=== PATIENT | female | born 1980 | race Caucasian/White ===

== ENCOUNTER 2016-12-17 12:29 | Emergency (ER) | payer OTHER ==
[~2016-12-17] VITALS: Ht 167.6 cm; Wt 68.0 kg
[~2016-12-17 12:29] MED LIST: /CELE20CA OR; /SCOPPA TD; ABIL10TA; ABIL15TA OR; ABIL2TAB; ABIL5TAB; ACET50TA PO; ALBU17IN INH; ALLE25CA; ALLE25CA OR; ARTHROTEC PO; ATIV1TAB2 OR; AUGM500T34 PO; AZIT250T3 PO; CIPR25SS OR; COLA100C3 PO; DIFL50TA OR; FLEXERIL; FLUT11IN INH; GEOD20CA14 OR; IBUP80TA PO; KLON1TAB OR; LEXAPRO PO; MAGN500T2 OR; METO10TA2 OR; NEXI20CA OR; ORTHO TRICYCLINE PO; OXCA15HATB OR; PHEN100T2 OR; PRIL20CA; PRIL40CA; PRIL40CA OR; PROTPAK PO; ROBILIQ PO; RYZOLT; RYZOLT PO; SERT100T; SKEL800T5; SOMA250T OR; SOMA350T OR; TOPI25TA2; TRAM50TA2; VICO5TAB; VITAMIN D50000 UNT; VITAMIN D50000 UNT OR; ZANA4CAP; ZANT150T; [UNRECOGNIZED DRUG - OTHER]
[2016-12-17 12:30] VITALS: BP 135/76
[2016-12-17] MEDS ORDERED: NAPR500T2 PO (12:37)
[2016-12-17] MEDS ORDERED: META800T82 PO (12:37)
[2016-12-17] MEDS ORDERED: ARNU1INH INH (12:37)
[2016-12-17] MEDS ORDERED: NORCOTAB PO (13:42)
[2016-12-17] MEDS ORDERED: NORCO, ANEXSIA 5/325MG TABLET (HYDROcodone/ACETAMINOPHEN) PO ONE (13:45)
== END 2016-12-17 14:22 | disposition home or self-care (01) ==
LOC: M ED 13:53
DX: S39.012A Strain of muscle, fascia and tendon of lower back, initial encounter (principal); M54.16 Radiculopathy, lumbar region; X58.XXXA Exposure to other specified factors, initial encounter; Y92.019 Unspecified place in single-family (private) house as the place of occurrence of the external cause; Y93.89 Activity, other specified; Y99.8 Other external cause status; J45.909 Unspecified asthma, uncomplicated; F31.9 Bipolar disorder, unspecified; Q61.5 Medullary cystic kidney; F17.200 Nicotine dependence, unspecified, uncomplicated; Z79.1 Long term (current) use of non-steroidal anti-inflammatories (NSAID); Z79.51 Long term (current) use of inhaled steroids; Z79.899 Other long term (current) drug therapy

== ENCOUNTER 2016-12-28 17:42 | Emergency (ER) | payer OTHER ==
[~2016-12-28] VITALS: Ht 167.6 cm; Wt 72.6 kg
[~2016-12-28 17:42] MED LIST changes: +ARNU1INH INH; +META800T82 PO; +NAPR500T2 PO; +NORCOTAB PO
[2016-12-28 19:05] VITALS: BP 156/75
== END 2016-12-28 19:06 | disposition home or self-care (01) ==
LOC: M ED 18:57
DX: O9A.211 Injury, poisoning and certain other consequences of external causes complicating pregnancy, first trimester (principal); S39.012A Strain of muscle, fascia and tendon of lower back, initial encounter; X50.0XXA Overexertion from strenuous movement or load, initial encounter; Y92.89 Other specified places as the place of occurrence of the external cause; Y93.89 Activity, other specified; Y99.8 Other external cause status; O26.891 Other specified pregnancy related conditions, first trimester; M54.9 Dorsalgia, unspecified; O10.92 Unspecified pre-existing hypertension complicating childbirth; O99.511 Diseases of the respiratory system complicating pregnancy, first trimester; J45.909 Unspecified asthma, uncomplicated; O99.281 Endocrine, nutritional and metabolic diseases complicating pregnancy, first trimester; Q61.5 Medullary cystic kidney; Z87.891 Personal history of nicotine dependence; Z79.51 Long term (current) use of inhaled steroids; Z3A.08 8 weeks gestation of pregnancy

== ENCOUNTER → 2016-12-30 | Outpatient (REF) | payer OTHER ==
[~2016-12-30] MED LIST changes: +PRED20TA PO
[2016-12-30 13:21] LABS: BASO % 0.4 % (0.0-1.0); EOS # 0.4 K/mm3 (0.0-0.50); EOS % 4.1 % (0.0-3.0); LARGE UNSTAINED CELL # 0.2 K/mm3 (0.0-0.4); LARGE UNSTAINED CELL % 1.7 % (0.0-4.0); LYMPH % 21.1 % (24.0-44.0); MEAN CORPUSCULAR HEMOGLOBIN 31.5 pg (27.0-33.0); MEAN CORPUSCULAR VOLUME 92.8 fl (80.0-96.0); MONO # 0.5 K/mm3 (0.0-0.8); MONO % 5.2 % (0.0-5.0); NEUTROPHILS # 6.3 K/mm3 (1.8-7.7); NEUTROPHILS % 67.4 % (36.0-66.0); PLATELET COUNT, AUTOMATED 299 k/mm3 (150-450); RED CELL DISTRIBUTION WIDTH 12.5 % (11.5-14.5); WHITE BLOOD COUNT 9.3 K/mm3 (4.0-10.0)
[2016-12-30 13:50] LABS: ALBUMIN 3.6 GM/DL (3.2-5.2); ALBUMIN/GLOBULIN RATIO 1.09 (1.00-1.93); ALKALINE PHOSPHATASE 69 U/L (45-117); ALT/SGPT 16 U/L (12-78); ANION GAP 9 MEQ/L (8-16); AST/SGOT 10 U/L (15-37); BILIRUBIN,TOTAL 0.3 MG/DL (0.2-1.0); BLOOD UREA NITROGEN 13 MG/DL (7-18); CALCIUM LEVEL 8.8 MG/DL (8.5-10.1); CARBON DIOXIDE LEVEL 25 MEQ/L (21-32); CHLORIDE LEVEL 104 MEQ/L (98-107); CREATININE FOR GFR 0.57 MG/DL (0.55-1.02); GLOMERULAR FILTRATION RATE > 60.0 (>60); GLUCOSE, FASTING 72 MG/DL (70-105); HCG, SERUM QUANTITATIVE 28443 MIU/ML; POTASSIUM SERUM 4.1 MEQ/L (3.5-5.1); SODIUM LEVEL 138 MEQ/L (136-145); TOTAL PROTEIN 6.9 GM/DL (6.4-8.2)
== END ==
LOC: M LAB REF 12:32
PROVIDERS: ATTEND Nurse Practitioner Family
DX: M51.16 Intervertebral disc disorders with radiculopathy, lumbar region (principal)

== ENCOUNTER 2017-01-09 13:52 | Emergency (ER) | payer OTHER ==
[~2017-01-09] VITALS: Ht 167.6 cm; Wt 72.6 kg
[~2017-01-09 13:52] MED LIST changes: -PRED20TA PO
[2017-01-09] MEDS ORDERED: MAG SULF 1GM/100ML (MAG RUN) 2 GM in APPROPRIATE DILUENT 1 EA IV ONE (14:15)
[2017-01-09 14:29] LABS: BASO % 0.3 % (0.0-1.0); EOS # 0.8 K/mm3 (0.0-0.50); EOS % 6.6 % (0.0-3.0); LARGE UNSTAINED CELL # 0.1 K/mm3 (0.0-0.4); LYMPH # 2.1 K/mm3 (1.5-4.5); LYMPH % 16.3 % (24.0-44.0); MEAN CORPUSCULAR HEMOGLOBIN 30.9 pg (27.0-33.0); MEAN CORPUSCULAR HGB CONC 34.3 g/dl (32.0-36.5); MEAN CORPUSCULAR VOLUME 90.1 fl (80.0-96.0); MONO # 0.4 K/mm3 (0.0-0.8); MONO % 3.2 % (0.0-5.0); NEUTROPHILS % 72.6 % (36.0-66.0); PLATELET COUNT, AUTOMATED 265 k/mm3 (150-450); RED CELL DISTRIBUTION WIDTH 12.7 % (11.5-14.5); WHITE BLOOD COUNT 12.4 K/mm3 (4.0-10.0)
[2017-01-09] MEDS: IPRATROPIUM 0.5MG/ALBUTEROL 2.5MG INH SOL UD 3ML (DUONEB)(J7620) NEB PRN ×2 (14:36→14:48)
[2017-01-09 14:49] LABS: ANION GAP 9 MEQ/L (8-16); BLOOD UREA NITROGEN 6 MG/DL (7-18); CALCIUM LEVEL 8.5 MG/DL (8.5-10.1); CARBON DIOXIDE LEVEL 24 MEQ/L (21-32); CHLORIDE LEVEL 107 MEQ/L (98-107); CREATININE FOR GFR 0.54 MG/DL (0.55-1.02); GLOMERULAR FILTRATION RATE > 60.0 (>60); GLUCOSE, FASTING 81 MG/DL (70-105); POTASSIUM SERUM 3.4 MEQ/L (3.5-5.1); SODIUM LEVEL 140 MEQ/L (136-145)
[2017-01-09] MEDS ORDERED: POTASSIUM CHLORIDE 10 MEQ SR TABLET PO ONE (15:15)
[2017-01-09 17:13] VITALS: BP 114/57
[2017-01-09] MEDS ORDERED: PRED20TA PO (17:44)
== END 2017-01-09 18:25 | disposition home or self-care (01) ==
LOC: EDBD 13:52 → M ED 14:26
DX: J45.901 Unspecified asthma with (acute) exacerbation (principal); F31.9 Bipolar disorder, unspecified; F41.9 Anxiety disorder, unspecified; F42.9 Obsessive-compulsive disorder, unspecified; Z87.891 Personal history of nicotine dependence

== ENCOUNTER 2017-04-17 11:16 | Emergency (ER) | payer OTHER ==
[~2017-04-17] VITALS: Ht 170.2 cm; Wt 75.0 kg
[~2017-04-17 11:16] MED LIST changes: +AZIT-12 PO; -AZIT250T3 PO; -COLA100C3 PO; +COLA100C5 PO; +META1TAB22 PO; -META800T82 PO; -NAPR500T2 PO; +NAPR500T3 PO; +PRED20TA PO
[2017-04-17] MEDS ORDERED: ARNU1INH IN (11:22)
[2017-04-17] MEDS ORDERED: ALBU20IN INH (11:22)
[2017-04-17] MEDS ORDERED: ALBU17IN INH (11:22)
[2017-04-17] MEDS ORDERED: guaiFENesin SYRUP 200 MG/10 ML UDC PO ONE (12:30)
[2017-04-17] MEDS ORDERED: IPRATROPIUM 0.5MG/ALBUTEROL 2.5MG INH SOL UD 3ML (DUONEB)(J7620) NEB ONE (12:30)
[2017-04-17 12:48] VITALS: BP 125/69
[2017-04-17] MEDS ORDERED: IPRASOL4 INH (12:49)
[2017-04-17] MEDS ORDERED: ZOFR4TAB3 PO (12:49)
== END 2017-04-17 13:05 | disposition home or self-care (01) ==
LOC: M ED 11:16
DX: O99.512 Diseases of the respiratory system complicating pregnancy, second trimester (principal); J45.901 Unspecified asthma with (acute) exacerbation; O10.92 Unspecified pre-existing hypertension complicating childbirth; O99.342 Other mental disorders complicating pregnancy, second trimester; F41.9 Anxiety disorder, unspecified; F20.9 Schizophrenia, unspecified; F31.9 Bipolar disorder, unspecified; F43.10 Post-traumatic stress disorder, unspecified; F42.9 Obsessive-compulsive disorder, unspecified; Z87.891 Personal history of nicotine dependence; Z3A.25 25 weeks gestation of pregnancy; Z79.51 Long term (current) use of inhaled steroids

== ENCOUNTER 2017-05-12 20:43 | Emergency (ER) | payer OTHER ==
[~2017-05-12] VITALS: Ht 170.2 cm; Wt 84.1 kg
[~2017-05-12 20:43] MED LIST changes: +ALBU20IN INH; +ARNU1INH IN; +IPRASOL4 INH; +ZOFR4TAB3 PO
[2017-05-12] MEDS ORDERED: ADVA45AE INH (20:51)
[2017-05-12] MEDS ORDERED: IPRATROPIUM 0.5MG/ALBUTEROL 2.5MG INH SOL UD 3ML (DUONEB)(J7620) As Ordered ONE (20:54)
[2017-05-12] MEDS ORDERED: dexameTHASONE 20 MG/5 ML VIAL (J1100) IV ONE (21:30)
[2017-05-12] MEDS: LEVALBUTEROL 1.25 MG/0.5 ML CONCENTRATE NEB INH SCH ×2 (23:41→23:49)
[2017-05-13] MEDS ORDERED: PRED20TA PO (01:10)
[2017-05-13 01:23] VITALS: BP 116/73
--- NOTE | 2017-05-13 02:33 | REP ---
Clinical: Dyspnea . Comparison: 01/09/2017, 07/20/2015 . Technique: PA and lateral. Findings: The mediastinum and cardiac silhouette are normal. The lung oneal are clear and without acute consolidation, effusion, or pneumothorax. The skeletal structures are intact and normal. Impression: 1. No acute cardiopulmonary process. 2. If the patient remains symptomatic consider chest CT for further investigation. Signed by Ivan Kaur MD 05/13/2017 02:24 A
== END 2017-05-13 01:24 | disposition home or self-care (01) ==
LOC: EDBD 20:43 → M ED 20:43
DX: J45.901 Unspecified asthma with (acute) exacerbation (principal); F31.9 Bipolar disorder, unspecified; Z79.899 Other long term (current) drug therapy; Z87.891 Personal history of nicotine dependence
CPT/HCPCS: 71020; 94640; 96374; 99283; J1100

== ENCOUNTER → 2017-05-17 | Outpatient (CLI) | payer OTHER ==
[~2017-05-17] MED LIST changes: +ADVA45AE INH
--- NOTE | 2017-05-18 07:30 | REP ---
Clinical: Anatomical evaluation. Comparison: None . Findings: Examination demonstrates a single live intrauterine in transverse (head to maternal left) presentation. motion is identified by technologist. Placenta is noted anteriorly and grade zero without evidence for placenta previa or abruption. Amniotic fluid volume is normal. Cervix measures 4.4 cm in length and appears closed. No evidence for nuchal cord. Gestational age by current measurements 27 weeks 5 days with BOBBY 08/11/2017 . FHR equals 155 beats per minute. BPD 6.7 cm 26 weeks 6 days HC 25.6 cm 27 weeks 6 days AC 23.6 cm 27 weeks 6 days FL 5.3 cm 28 weeks 1 day HL 4.8 cm 28 weeks 0 days HC/AC ratio 1.09 Estimated weight 1141 grams ( 46th percentile). Amniotic fluid index = 16.2 cm. Umbilical cord SD ratio = 0.35 Anatomical assessment demonstrates normal structures including cranium, choroid plexus, cavum, cerebellum/posterior fossa, facial features, lungs, four-chamber heart/ventricular outflow tracts, diaphragm, stomach, cord insertion/three-vessel cord, kidneys/bladder, spine, and extremities. Limited evaluation of the facial profile and umbilical cord insertion. Impression: Single live intrauterine in transverse lie. Anatomical limitations as described above. Remainder of the examination is normal. Signed by Ivan Kaur MD 05/18/2017 07:21 A
== END ==
LOC: M RAD 17:44
PROVIDERS: ATTEND Advanced Practice Midwife
DX: Z36.2 Encounter for other antenatal screening follow-up (principal); Z3A.29 29 weeks gestation of pregnancy

== ENCOUNTER → 2017-05-17 | Outpatient (CLI) | payer OTHER ==
[2017-05-17 18:16] LABS: BASO % 0.2 % (0.0-1.0); EOS # 0.1 10^3/uL (0.0-0.50); EOS % 0.8 % (0.0-3.0); IMMATURE GRANULOCYTE % 0.6 % (0-0); LYMPH # 2.8 10^3/uL (1.5-4.5); LYMPH % 22.6 % (24.0-44.0); MEAN CORPUSCULAR HEMOGLOBIN 30.2 pg (27.0-33.0); MEAN CORPUSCULAR HGB CONC 33.1 g/dl (32.0-36.5); MEAN CORPUSCULAR VOLUME 91.3 fl (80.0-96.0); MONO % 7.7 % (0.0-5.0); NEUTROPHILS # 8.4 10^3/uL (1.8-7.7); NEUTROPHILS % 68.1 % (36.0-66.0); PLATELET COUNT, AUTOMATED 343 10^3/uL (150-450); RED CELL DISTRIBUTION WIDTH 12.8 % (11.5-14.5); WHITE BLOOD COUNT 12.4 10^3/uL (4.0-10.0)
[2017-05-17 19:07] LABS: ALBUMIN 2.8 GM/DL (3.2-5.2); ANION GAP 7 MEQ/L (8-16); BLOOD UREA NITROGEN 10 MG/DL (7-18); CALCIUM LEVEL 8.5 MG/DL (8.5-10.1); CARBON DIOXIDE LEVEL 27 MEQ/L (21-32); CHLORIDE LEVEL 104 MEQ/L (98-107); CREATININE FOR GFR 0.61 MG/DL (0.55-1.02); GLOMERULAR FILTRATION RATE > 60.0 (>60); GLUCOSE, FASTING 51 MG/DL (70-105); PHOSPHORUS LEVEL 3.8 MG/DL (2.5-4.9); POTASSIUM SERUM 3.8 MEQ/L (3.5-5.1); SODIUM LEVEL 138 MEQ/L (136-145)
[2017-05-18 10:42] LABS: HBsAg Prenatal NEGATIVE (NEGATIVE)
== END ==
LOC: M LAB 17:14
PROVIDERS: ATTEND Advanced Practice Midwife
DX: Z34.82 Encounter for supervision of other normal pregnancy, second trimester (principal)

== ENCOUNTER 2017-07-15 08:29 | Emergency (ER) | payer OTHER ==
[~2017-07-15] VITALS: Ht 170.2 cm; Wt 91.0 kg
[2017-07-15] MEDS: IPRATROPIUM 0.5MG/ALBUTEROL 2.5MG INH SOL UD 3ML (DUONEB)(J7620) NEB PRN ×3 (09:25→10:10)
[2017-07-15] MEDS ORDERED: methylPREDNISolone INJ 125 MG/2 ML VIAL (J2930) IV ONE (09:45)
[2017-07-15] MEDS ORDERED: PRED20TA PO (11:42)
[2017-07-15 12:18] VITALS: BP 126/80
[2017-07-15 12:19] VITALS: O2SAT 98
== END 2017-07-15 12:20 | disposition home or self-care (01) ==
LOC: M ED 08:29 → EDBD 08:29 → M ED 12:20
DX: O99.519 Diseases of the respiratory system complicating pregnancy, unspecified trimester (principal); J45.901 Unspecified asthma with (acute) exacerbation; Z79.899 Other long term (current) drug therapy; Z79.52 Long term (current) use of systemic steroids; Z3A.00 Weeks of gestation of pregnancy not specified
CPT/HCPCS: 94640; 96374; 99284; J2930

== ENCOUNTER → 2017-07-28 | Outpatient (REF) | payer OTHER | LOC: M LAB REF 11:18 | DX: Z36.85 Encounter for antenatal screening for Streptococcus B (principal); Z3A.00 Weeks of gestation of pregnancy not specified | CPT/HCPCS: 87081 ==

== ENCOUNTER 2017-08-20 04:44 | Inpatient (IN) | payer OTHER ==
[2017-08-20] MEDS: OXYTOCIN INJ 10 UNITS/ML VIAL (J2590) IV ×2 (04:43→04:50)
[2017-08-20] MEDS ORDERED: OXYTOCIN 30 UNITS IN 0.9% NaCl 500ML IV BAG (J2590) As Ordered ×2 (04:45→06:01)
[2017-08-20] MEDS ORDERED: LR 1,000 ML IV (05:24)
[2017-08-20] MEDS ORDERED: OXYTOCIN INJ 10 UNITS/ML VIAL (J2590) IV (05:30)
[2017-08-20] MEDS ORDERED: DOCUSATE SODIUM 100 MG CAP PO (05:30)
[2017-08-20] MEDS ORDERED: METHYLERGONOVINE MALEATE 0.2 MG TAB PO (05:30)
[2017-08-20] MEDS ORDERED: ACETAMINOPHEN 500 MG TAB PO (05:30)
[2017-08-20] MEDS ORDERED: DIBUCAINE 1% OINTMENT 30GM TOP (05:30)
[2017-08-20] MEDS ORDERED: MOM 30ML SUSPENSION UDC PO (05:30)
[2017-08-20] MEDS ORDERED: ANUSOL HC CREAM 30GM TOP (05:30)
[2017-08-20 05:47] LABS: CORD GAS ABE V -1.8; CORD GAS HCO3 V 23.5 MEQ/L; CORD GAS O2 SAT V 80.2 %; CORD GAS PH V 7.366 UNITS; CORD GAS PO2 V 35.7 mmHg; CORD GAS SBC V 22.5 MEQ/L; CORD GAS TCO2 V 24.8 MEQ/L
[2017-08-20] MEDS: IBUPROFEN 800 MG TAB PO ×2 (06:58→18:34)
[2017-08-20] MEDS: OXYTOCIN DRIP 30 UNITS in APPROPRIATE DILUENT 1 EA IV (06:59)
[2017-08-20 08:21] LABS: HEMATOCRIT 33.7 % (36.0-47.0); HEMOGLOBIN 10.6 g/dl (12.0-16.0); MEAN CORPUSCULAR HEMOGLOBIN 26.3 pg (27.0-33.0); MEAN CORPUSCULAR HGB CONC 31.5 g/dl (32.0-36.5); MEAN CORPUSCULAR VOLUME 83.6 fl (80.0-96.0); PLATELET COUNT, AUTOMATED 224 10^3/uL (150-450); RED BLOOD COUNT 4.03 10^6/uL (4.00-5.40); RED CELL DISTRIBUTION WIDTH 14.9 % (11.5-14.5); WHITE BLOOD COUNT 20.6 10^3/uL (4.0-10.0)
[2017-08-20] MEDS: PRENATAL VITAMINS CHEWABLE TABLET PO (09:00)
[2017-08-20] MEDS: MEASLES,MUMPS,RUBELLA VACCINE INJ (MMR-II) (90707) SC (11:47)
[2017-08-20] MEDS: RHOGAM 300 MCG (1500 IU) INJ (J2790) IM (11:47)
[2017-08-21 06:55] LABS: HEMATOCRIT 30.1 % (36.0-47.0); HEMOGLOBIN 9.3 g/dl (12.0-16.0); MEAN CORPUSCULAR HEMOGLOBIN 25.8 pg (27.0-33.0); MEAN CORPUSCULAR HGB CONC 30.9 g/dl (32.0-36.5); MEAN CORPUSCULAR VOLUME 83.6 fl (80.0-96.0); PLATELET COUNT, AUTOMATED 241 10^3/uL (150-450); RED CELL DISTRIBUTION WIDTH 15.1 % (11.5-14.5); WHITE BLOOD COUNT 12.4 10^3/uL (4.0-10.0)
[2017-08-21] MEDS: PRENATAL VITAMINS CHEWABLE TABLET PO (08:24)
[2017-08-21] MEDS: IBUPROFEN 800 MG TAB PO (08:24)
[2017-08-22] MEDS: IBUPROFEN 800 MG TAB PO (07:59)
[2017-08-22] MEDS: PRENATAL VITAMINS CHEWABLE TABLET PO (07:59)
== END 2017-08-22 11:00 | disposition home or self-care (01) | DRG 560 ==
LOC: M ED 04:44 → M ED INP 05:00 → M LDI 05:10 → M OBS 09:42
PROC: 10E0XZZ Delivery of Products of Conception, External Approach (ICD-10-PCS; principal; 2017-08-20)
PROC: 0HQ9XZZ Repair Perineum Skin, External Approach (ICD-10-PCS; 2017-08-20)
DX: O62.3 Precipitate labor (principal); J45.909 Unspecified asthma, uncomplicated; O48.0 Post-term pregnancy; Z3A.41 41 weeks gestation of pregnancy; O70.0 First degree perineal laceration during delivery; Z37.0 Single live birth; O99.52 Diseases of the respiratory system complicating childbirth

== ENCOUNTER → 2018-07-05 | Outpatient (CLI) | payer MEDICAID | LOC: M OUTALCOH 11:29 | DX: Z13.9 Encounter for screening, unspecified (principal); F12.10 Cannabis abuse, uncomplicated ==

== ENCOUNTER 2018-07-28 13:00 | Outpatient (RCR) | payer MEDICAID ==
[~2018-07-28 13:00] MED LIST changes: -ACET50TA PO; +IBUP-1114 PO; +IPRA0.00 INH; -IPRASOL4 INH; +MAPA500T2 PO; +NAPR-885 PO; -NAPR500T3 PO; +PREN1CHW PO; +ZOFR4TAB14 PO; -ZOFR4TAB3 PO
== END 2018-07-31 ==
LOC: M OUTALCOH 13:00
PROVIDERS: ATTEND Psychiatry & Neurology Psychiatry
DX: F12.10 Cannabis abuse, uncomplicated (principal)

== ENCOUNTER 2018-07-31 13:16 | Emergency (ER) | payer MEDICAID, OTHER ==
[~2018-07-31] VITALS: Ht 170.2 cm; Wt 77.3 kg
--- NOTE | 2018-07-31 14:05 | REP ---
Clinical: Right foot pain Technique: AP, lateral, bilateral oblique views right foot . Findings: The osseous structures and joint spaces are intact and normal. There is no evidence for acute fracture or dislocation. Surrounding soft tissues are unremarkable. No subcutaneous emphysema or radiodense foreign body. Impression: Normal right foot series . No acute fracture or dislocation. Electronically Signed by Ivan Kaur MD 07/31/2018 01:55 P
[2018-07-31 14:32] VITALS: BP 118/68
== END 2018-07-31 14:37 | disposition home or self-care (01) ==
LOC: M ED 13:16
DX: M79.671 Pain in right foot (principal); R39.11 Hesitancy of micturition; J45.909 Unspecified asthma, uncomplicated; F33.9 Major depressive disorder, recurrent, unspecified; F41.9 Anxiety disorder, unspecified; K21.9 Gastro-esophageal reflux disease without esophagitis; Q61.5 Medullary cystic kidney

== ENCOUNTER 2018-08-25 13:00 | Outpatient (RCR) | payer MEDICAID | END 2018-08-31 | LOC: M OUTALCOH 13:00 | PROVIDERS: ATTEND Psychiatry & Neurology Psychiatry | DX: F12.10 Cannabis abuse, uncomplicated (principal) ==

== ENCOUNTER 2018-09-15 13:00 | Outpatient (RCR) | payer MEDICAID | END 2018-09-28 | LOC: M OUTALCOH 13:00 | PROVIDERS: ATTEND Psychiatry & Neurology Psychiatry | DX: F12.10 Cannabis abuse, uncomplicated (principal) ==

== ENCOUNTER 2018-09-29 13:11 | Outpatient (RCR) | payer MEDICAID | END 2018-10-29 | LOC: M OUTALCOH 13:11 | PROVIDERS: ATTEND Psychiatry & Neurology Psychiatry | DX: F12.10 Cannabis abuse, uncomplicated (principal) ==

== ENCOUNTER 2018-11-13 12:47 | Emergency (ER) | payer MEDICAID, OTHER ==
[~2018-11-13] VITALS: Ht 170.2 cm; Wt 95.5 kg
[~2018-11-13 12:47] MED LIST changes: -/CELE20CA OR; -/SCOPPA TD; +CELE1CAP4 OR; +HYDR-3715 PO; +LEXA1TAB PO; -LEXAPRO PO; -NORCOTAB PO; -OXCA15HATB OR; +OXCA1TAB OR; +SCOP1PAT TD
[2018-11-13] MEDS ORDERED: PROZ10CA7 (12:56)
[2018-11-13] MEDS ORDERED: PROZ20CA11 (12:56)
[2018-11-13] MEDS ORDERED: HYDR-3363 (12:56)
[2018-11-13] MEDS ORDERED: CLON-412 (12:56)
[2018-11-13] MEDS ORDERED: PRAZ1CAP (12:56)
[2018-11-13] MEDS ORDERED: TRAZ-163 (12:56)
[2018-11-13] MEDS ORDERED: KETOROLAC 30 MG/ML VIAL (J1885) IM ONE (14:45)
[2018-11-13] MEDS ORDERED: CYCL10TA PO (14:45)
[2018-11-13] MEDS ORDERED: LIDO5DIS41 TOP (14:45)
[2018-11-13 14:49] VITALS: BP 158/71
[2018-11-13] MEDS ORDERED: PROMETHAZINE INJ 25 MG/ML VIAL (J2550) IV ONE (15:00)
[2018-11-14] MEDS ORDERED: IBUP-1022 PO (19:04)
== END 2018-11-13 14:57 | disposition home or self-care (01) ==
LOC: M ED 12:47
DX: M54.5 Low back pain (principal)
CPT/HCPCS: 96372; 99283; J1885

== ENCOUNTER 2018-11-14 17:26 | Emergency (ER) | payer OTHER ==
[~2018-11-14] VITALS: Ht 170.2 cm; Wt 95.5 kg
[~2018-11-14 17:26] MED LIST changes: +CLON-412; +CYCL10TA PO; +HYDR-3363; +LIDO5DIS41 TOP; +PRAZ1CAP; +PROZ10CA7; +PROZ20CA11; +TRAZ-163
[2018-11-14] MEDS ORDERED: IBUP-1022 PO (19:04)
[2018-11-14 19:10] VITALS: BP 134/76
== END 2018-11-14 19:12 | disposition home or self-care (01) ==
LOC: M ED 17:26
DX: G89.29 Other chronic pain (principal); M54.5 Low back pain; Z79.899 Other long term (current) drug therapy

== ENCOUNTER → 2019-02-05 | Outpatient (CLI) | payer MEDICAID ==
[~2019-02-05] MED LIST changes: +IBUP-1022 PO
== END ==
LOC: M OUTALCOH 07:53
PROVIDERS: ATTEND Psychiatry & Neurology Psychiatry
DX: F12.10 Cannabis abuse, uncomplicated (principal)

== ENCOUNTER 2019-02-27 16:00 | Outpatient (RCR) | payer MEDICAID | END 2019-02-28 | LOC: M OUTALCOH 16:00 | PROVIDERS: ATTEND Psychiatry & Neurology Psychiatry | DX: F12.10 Cannabis abuse, uncomplicated (principal) ==

== ENCOUNTER 2019-03-26 14:00 | Outpatient (RCR) | payer MEDICAID | END 2019-03-31 | LOC: M OUTALCOH 14:00 | PROVIDERS: ATTEND Psychiatry & Neurology Psychiatry | DX: F12.10 Cannabis abuse, uncomplicated (principal) ==

== ENCOUNTER 2019-04-16 16:00 | Outpatient (RCR) | payer MEDICAID | END 2019-04-30 | LOC: M OUTALCOH 16:00 | PROVIDERS: ATTEND Psychiatry & Neurology Psychiatry | DX: F12.10 Cannabis abuse, uncomplicated (principal) ==

== ENCOUNTER 2019-05-22 15:28 | Outpatient (RCR) | payer MEDICAID | END 2019-05-31 | LOC: M OUTALCOH 15:28 | PROVIDERS: ATTEND Psychiatry & Neurology Psychiatry | DX: F12.10 Cannabis abuse, uncomplicated (principal) ==

== ENCOUNTER 2019-06-01 15:30 | Outpatient (RCR) | payer MEDICAID | END 2019-06-30 | LOC: M OUTALCOH 15:30 | PROVIDERS: ATTEND Psychiatry & Neurology Psychiatry | DX: F12.10 Cannabis abuse, uncomplicated (principal) ==

== ENCOUNTER 2019-07-23 15:30 | Outpatient (RCR) | payer MEDICAID | END 2019-07-31 | LOC: M OUTALCOH 15:30 | PROVIDERS: ATTEND Psychiatry & Neurology Psychiatry | DX: F12.10 Cannabis abuse, uncomplicated (principal) ==

== ENCOUNTER 2019-08-27 16:00 | Outpatient (RCR) | payer MEDICAID ==
[~2019-08-27 16:00] MED LIST changes: -TRAZ-163; +TRAZ-257
== END 2019-08-31 ==
LOC: M OUTALCOH 16:00
PROVIDERS: ATTEND Psychiatry & Neurology Psychiatry
DX: F12.10 Cannabis abuse, uncomplicated (principal)

== ENCOUNTER 2019-10-29 16:00 | Outpatient (RCR) | payer MEDICAID | END 2019-10-30 | LOC: M OUTALCOH 16:00 | PROVIDERS: ATTEND Psychiatry & Neurology Addiction Medicine | DX: F12.10 Cannabis abuse, uncomplicated (principal) ==

== ENCOUNTER 2019-11-12 16:00 | Outpatient (RCR) | payer MEDICAID ==
[~2019-11-12 16:00] MED LIST changes: +CYCL-707 PO; -CYCL10TA PO
== END 2019-11-29 ==
LOC: M OUTALCOH 16:00
PROVIDERS: ATTEND Psychiatry & Neurology Addiction Medicine
DX: F12.10 Cannabis abuse, uncomplicated (principal)

== ENCOUNTER 2019-12-08 20:16 | Emergency (ER) | payer MEDICAID, OTHER ==
[~2019-12-08] VITALS: Ht 170.2 cm; Wt 95.5 kg
[2019-12-08] MEDS ORDERED: diazePAM 10MG/2ML SYRINGE (J3360 PER 5MG) IM ONE (21:30)
[2019-12-08] MEDS ORDERED: KETOROLAC 60 MG/2 ML VIAL IM ONE (21:30)
[2019-12-08] MEDS ORDERED: NORCO 5/325MG TABLET (BULK FOR ED) PO ONE (23:30)
[2019-12-08 23:44] VITALS: BP 141/79
== END 2019-12-08 23:45 | disposition home or self-care (01) ==
LOC: M ED 20:16
DX: M54.5 Low back pain (principal); I10 Essential (primary) hypertension; J45.909 Unspecified asthma, uncomplicated; K21.9 Gastro-esophageal reflux disease without esophagitis; Z79.899 Other long term (current) drug therapy
CPT/HCPCS: 96372; 99283; J1885; J3360

== ENCOUNTER 2019-12-27 14:17 | Outpatient (RCR) | payer MEDICAID | END 2019-12-30 | LOC: M OUTALCOH 14:17 | PROVIDERS: ATTEND Psychiatry & Neurology Addiction Medicine | DX: F12.10 Cannabis abuse, uncomplicated (principal) ==

== ENCOUNTER 2020-01-15 13:21 | Outpatient (RCR) | payer MEDICAID | END 2020-01-29 | LOC: M OUTALCOH 13:21 | PROVIDERS: ATTEND Psychiatry & Neurology Addiction Medicine | DX: F12.10 Cannabis abuse, uncomplicated (principal) ==

== ENCOUNTER 2022-05-21 20:31 | Emergency (ER) | payer MEDICAID, OTHER ==
[~2022-05-21] VITALS: Ht 170.2 cm; Wt 77.7 kg
[2022-05-21 20:31] VITALS: BP 129/88
[2022-05-21] MEDS ORDERED: ONDANSETRON 4MG 2ML VIAL IV ONE (23:00)
[2022-05-21] MEDS ORDERED: NS 1,000 ML IV ONE (23:00)
[2022-05-21] MEDS ORDERED: KETOROLAC 30 MG/ML 1ML VIAL IV ONE (23:00)
[2022-05-21 23:26] LABS: BASO # 0.1 10^3/uL (0.0-0.2); BASO % 0.7 % (0.0-1.0); EOS # 0.4 10^3/uL (0.0-0.5); EOS % 3.8 % (0.0-3.0); HEMATOCRIT 36.9 % (36.0-47.0); HEMOGLOBIN 12.3 g/dl (12.0-15.5); LYMPH # 3.2 10^3/uL (1.5-5.0); LYMPH % 29.1 % (24.0-44.0); MEAN CORPUSCULAR HEMOGLOBIN 30.1 pg (27.0-33.0); MEAN CORPUSCULAR HGB CONC 33.3 g/dl (32.0-36.5); MEAN CORPUSCULAR VOLUME 90.2 fl (80.0-96.0); MONO # 1.1 10^3/uL (0.0-0.8); MONO % 9.6 % (2.0-8.0); NEUTROPHILS # 6.2 10^3/uL (1.5-8.5); NEUTROPHILS % 56.6 % (36.0-66.0); PLATELET COUNT, AUTOMATED 354 10^3/uL (150-450); RED BLOOD COUNT 4.09 10^6/uL (4.00-5.40)
[2022-05-21 23:37] LABS: INR 0.97; PROTHROMBIN TIME 13.1 SECONDS (12.5-14.5)
[2022-05-21 23:38] LABS: PARTIAL THROMBOPLASTIN TIME 29.3 SECONDS (24.8-34.2)
[2022-05-21 23:48] LABS: HEMOGLOBIN A1c 5.4 %
[2022-05-21] MEDS ORDERED: ISOVUE-370 76% 100ML VIAL As Ordered ONE (23:52)
[2022-05-22] MEDS ORDERED: POTASSIUM CHLORIDE 10MEQ SR TABLET PO ONE
[2022-05-22 00:02] LABS: ALBUMIN 3.3 GM/DL (3.2-5.2); ALT/SGPT 22 U/L (12-78); BILIRUBIN,DIRECT < 0.1 MG/DL (0.0-0.2); BILIRUBIN,TOTAL 0.3 MG/DL (0.2-1.0); LIPASE 85 U/L (73-393); NT-PRO BNP 32 PG/ML (<125); RHEUMATOID FACTOR QUANT < 10.0 IU/ML (<15.0); TOTAL PROTEIN 6.7 GM/DL (6.4-8.2)
[2022-05-22 00:02] LABS: CK-MB VALUE MASS 2.4 NG/ML (<3.6); CPK CREATINE PHOSPHOKINASE 171 U/L (26-192)
[2022-05-22] MEDS ORDERED: ALBUTEROL SULFATE 2.5 MG/0.5 ML INH NEB SOLN NEB ONE (00:20)
[2022-05-22] MEDS ORDERED: AMOX875T2 PO (02:34)
[2022-05-22] MEDS ORDERED: VENTAER INH (02:34)
[2022-05-22] MEDS ORDERED: PRED20TA PO (02:34)
== END 2022-05-22 02:57 | disposition home or self-care (01) ==
LOC: M ED 20:31
DX: J18.9 Pneumonia, unspecified organism (principal); J45.901 Unspecified asthma with (acute) exacerbation; R11.2 Nausea with vomiting, unspecified; N20.0 Calculus of kidney; K42.9 Umbilical hernia without obstruction or gangrene; R19.7 Diarrhea, unspecified; J02.9 Acute pharyngitis, unspecified; K21.9 Gastro-esophageal reflux disease without esophagitis; Q61.5 Medullary cystic kidney; F17.200 Nicotine dependence, unspecified, uncomplicated; F41.9 Anxiety disorder, unspecified; M54.9 Dorsalgia, unspecified; Z79.51 Long term (current) use of inhaled steroids; Z79.899 Other long term (current) drug therapy
CPT/HCPCS: 71046; 74177; 80047; 80076; 81002; 82550; 82553; 83036; 83690; 83880; 84702; 85025; 85610; 85730; 86431; 93005; 94640; 96361; 96374; 96375; 99284; J1885; J2405; Q9967

== ENCOUNTER 2022-09-09 20:22 | Emergency (ER) | payer OTHER ==
[~2022-09-09] VITALS: Ht 170.2 cm; Wt 74.8 kg
[~2022-09-09 20:22] MED LIST changes: +AMOX875T2 PO; +VENTAER INH
[2022-09-09] MEDS ORDERED: GABA600T4 PO (20:38)
[2022-09-09] MEDS ORDERED: MELO15TA28 PO (20:38)
[2022-09-10] MEDS ORDERED: ACETAMINOPHEN TAB 650MG DOSE (2X325MG) PO ONE (05:45)
[2022-09-10 07:50] VITALS: BP 150/78
[2022-09-10] MEDS ORDERED: BENZ1LOZ9 PO (08:09)
[2022-09-10] MEDS ORDERED: ALBU6.7H6 INH (08:09)
== END 2022-09-10 08:20 | disposition home or self-care (01) ==
LOC: M ED 20:22
DX: J06.9 Acute upper respiratory infection, unspecified (principal); B34.2 Coronavirus infection, unspecified; J02.8 Acute pharyngitis due to other specified organisms; B34.1 Enterovirus infection, unspecified; B34.8 Other viral infections of unspecified site; J45.909 Unspecified asthma, uncomplicated; Z87.01 Personal history of pneumonia (recurrent); K21.9 Gastro-esophageal reflux disease without esophagitis; F31.9 Bipolar disorder, unspecified; Q61.5 Medullary cystic kidney; Z87.891 Personal history of nicotine dependence; F12.10 Cannabis abuse, uncomplicated; Z79.899 Other long term (current) drug therapy

== ENCOUNTER 2022-09-28 16:26 | Emergency (ER) | payer OTHER ==
[~2022-09-28] VITALS: Ht 170.2 cm; Wt 73.2 kg
[~2022-09-28 16:26] MED LIST changes: +ALBU6.7H6 INH; +BENZ1LOZ9 PO; +GABA600T4 PO; +MELO15TA28 PO
[2022-09-28] MEDS ORDERED: LIDOCAINE 5% (LIDODERM) PATCH TD ONE (22:05)
[2022-09-28] MEDS ORDERED: ACETAMINOPHEN 500 MG TAB PO ONE (22:05)
[2022-09-28] MEDS ORDERED: PENICILLIN V POTASSIUM 500 MG TAB PO ONE (22:25)
[2022-09-28 22:40] LABS: BASO # 0.1 10^3/uL (0.0-0.2); BASO % 0.4 % (0.0-1.0); EOS # 0.2 10^3/uL (0.0-0.5); EOS % 1.3 % (0.0-3.0); HEMATOCRIT 39.9 % (36.0-47.0); HEMOGLOBIN 13.1 g/dl (12.0-15.5); LYMPH # 2.6 10^3/uL (1.5-5.0); LYMPH % 15.9 % (24.0-44.0); MEAN CORPUSCULAR HGB CONC 32.8 g/dl (32.0-36.5); MEAN CORPUSCULAR VOLUME 91.3 fl (80.0-96.0); MONO % 9.9 % (2.0-8.0); NEUTROPHILS % 72.1 % (36.0-66.0); PLATELET COUNT, AUTOMATED 282 10^3/uL (150-450); RED BLOOD COUNT 4.37 10^6/uL (4.00-5.40); WHITE BLOOD COUNT 16.6 10^3/uL (4.0-10.0)
[2022-09-28 22:56] LABS: MONO # 1.7 10^3/uL (0.0-0.8)
[2022-09-28 23:10] LABS: BLOOD UREA NITROGEN 16 MG/DL (9-23); CALCIUM LEVEL 9.2 MG/DL (8.5-10.1); CARBON DIOXIDE LEVEL 26 MMOL/L (20-31); CHLORIDE LEVEL 104 MMOL/L (98-107); CREATININE FOR GFR 0.59 MG/DL (0.55-1.30); GLOMERULAR FILTRATION RATE > 60.0 (>58); GLUCOSE, FASTING 83 MG/DL (60-100); POTASSIUM SERUM 4.1 MMOL/L (3.5-5.1); SODIUM LEVEL 137 MMOL/L (136-145)
[2022-09-28] MEDS ORDERED: IBUP80TA PO (23:33)
[2022-09-28] MEDS ORDERED: PENI500T PO (23:33)
[2022-09-28] MEDS ORDERED: LIDO5DIS41 TOP (23:33)
[2022-09-29 00:03] VITALS: BP 115/60
== END 2022-09-29 00:05 | disposition home or self-care (01) ==
LOC: M ED 16:26
DX: J03.00 Acute streptococcal tonsillitis, unspecified (principal); M54.17 Radiculopathy, lumbosacral region; M48.07 Spinal stenosis, lumbosacral region; M47.817 Spondylosis without myelopathy or radiculopathy, lumbosacral region; Z79.899 Other long term (current) drug therapy

== ENCOUNTER → 2022-12-30 | Outpatient (REF) | payer OTHER ==
[~2022-12-30] MED LIST changes: -ALBU20IN INH; +ALBU5SOL7 INH; +PENI500T PO
== END ==
LOC: M LAB REF 12:18
PROVIDERS: ATTEND Nurse Practitioner Family
DX: R05.9 Cough, unspecified (principal)

== ENCOUNTER 2023-01-26 01:50 | Emergency (ER) | payer OTHER ==
[~2023-01-26] VITALS: Ht 170.2 cm; Wt 68.2 kg
[2023-01-26 01:52] VITALS: TEMP 97
[2023-01-26] MEDS ORDERED: ALBUTEROL SULFATE 2.5MG/0.5ML INH NEB SOLN NEB ONE ×4 (02:15→03:50)
[2023-01-26] MEDS ORDERED: IPRATROPIUM 0.5MG/ALBUTEROL 2.5MG INH SOL UD 3ML (DUONEB) NEB ONE (02:15)
[2023-01-26] MEDS ORDERED: methylPREDNISolone 125MG 2ML VIAL IV ONE (02:20)
[2023-01-26 02:40] LABS: BASO # 0.1 10^3/uL (0.0-0.2); BASO % 0.8 % (0.0-1.0); EOS # 0.8 10^3/uL (0.0-0.5); EOS % 6.8 % (0.0-3.0); HEMATOCRIT 40.1 % (36.0-47.0); HEMOGLOBIN 13.3 g/dl (12.0-15.5); LYMPH % 25.1 % (24.0-44.0); MEAN CORPUSCULAR HEMOGLOBIN 29.4 pg (27.0-33.0); MEAN CORPUSCULAR HGB CONC 33.2 g/dl (32.0-36.5); MEAN CORPUSCULAR VOLUME 88.7 fl (80.0-96.0); MONO # 0.8 10^3/uL (0.0-0.8); MONO % 6.7 % (2.0-8.0); NEUTROPHILS # 7.1 10^3/uL (1.5-8.5); NEUTROPHILS % 60.4 % (36.0-66.0); PLATELET COUNT, AUTOMATED 360 10^3/uL (150-450); RED BLOOD COUNT 4.52 10^6/uL (4.00-5.40); WHITE BLOOD COUNT 11.8 10^3/uL (4.0-10.0)
[2023-01-26 03:09] LABS: BLOOD UREA NITROGEN 16 MG/DL (9-23); CARBON DIOXIDE LEVEL 23 MMOL/L (20-31); CHLORIDE LEVEL 109 MMOL/L (98-107); CREATININE FOR GFR 0.67 MG/DL (0.55-1.30); GLOMERULAR FILTRATION RATE > 60.0 (>58); GLUCOSE, FASTING 94 MG/DL (60-100); MAGNESIUM LEVEL 1.9 MG/DL (1.8-2.4); POTASSIUM SERUM 3.9 MMOL/L (3.5-5.1); SODIUM LEVEL 141 MMOL/L (136-145)
[2023-01-26] MEDS ORDERED: ALBUTEROL 90 MCG/ACT 8GM HFA INHALER INH ONE (03:55)
[2023-01-26] MEDS ORDERED: AZIT500T5 PO (03:57)
[2023-01-26 04:00] VITALS: BP 127/77
[2023-01-26] MEDS ORDERED: AZITHROMYCIN 250MG TABLET PO ONE (04:00)
[2023-01-26 04:35] VITALS: O2SAT 94
== END 2023-01-26 04:44 | disposition home or self-care (01) ==
LOC: M ED 01:50 → EDBD 01:50 → M ED 04:44
DX: J20.9 Acute bronchitis, unspecified (principal); J45.901 Unspecified asthma with (acute) exacerbation; F17.200 Nicotine dependence, unspecified, uncomplicated; Z79.51 Long term (current) use of inhaled steroids; Z79.899 Other long term (current) drug therapy
CPT/HCPCS: 71045; 80048; 83735; 85025; 87486; 87581; 87633; 87798; 94640; 96374; 99284; J2930

== ENCOUNTER → 2023-07-19 | Outpatient (CLI) | payer OTHER ==
[~2023-07-19] MED LIST changes: +AZIT500T5 PO
== END ==
LOC: M WUC 11:33
PROVIDERS: ATTEND Family Medicine Addiction Medicine
DX: M79.605 Pain in left leg (principal)

== ENCOUNTER → 2023-11-15 | Outpatient (REF) | payer OTHER | LOC: M LAB REF 16:27 | PROVIDERS: ATTEND Podiatrist Foot & Ankle Surgery | DX: L03.115 Cellulitis of right lower limb (principal) ==

== ENCOUNTER 2024-07-01 11:10 | Emergency (ER) | payer OTHER ==
[~2024-07-01] VITALS: Ht 170.2 cm; Wt 83.0 kg
[~2024-07-01 11:10] MED LIST changes: +GABA-1490 PO; -GABA600T4 PO; +META-10 PO; -META1TAB22 PO
[2024-07-01 11:27] VITALS: TEMP 99.7
[2024-07-01] MEDS ORDERED: ISOVUE-370 76% 100ML VIAL As Ordered ONE (12:29)
[2024-07-01 14:01] VITALS: BP 124/84; O2SAT 100
== END 2024-07-01 14:19 | disposition home or self-care (01) ==
LOC: M ED 11:10 → EDBD 11:10 → M ED 14:19
DX: S63.92XA Sprain of unspecified part of left wrist and hand, initial encounter (principal); S19.9XXA Unspecified injury of neck, initial encounter; Y92.019 Unspecified place in single-family (private) house as the place of occurrence of the external cause; Y93.9 Activity, unspecified; Y99.9 Unspecified external cause status; Y04.8XXA Assault by other bodily force, initial encounter; J45.909 Unspecified asthma, uncomplicated; Z79.51 Long term (current) use of inhaled steroids; Z79.1 Long term (current) use of non-steroidal anti-inflammatories (NSAID); Z79.2 Long term (current) use of antibiotics; Z79.899 Other long term (current) drug therapy
CPT/HCPCS: 36415; 70498; 72125; 73110; 80047; 99284; Q9967